=== PATIENT | male | born 1925 | race Caucasian/White ===

== ENCOUNTER 2016-10-15 09:30 | Inpatient (IN) | payer MEDICARE ==
[~2016-10-15] VITALS: Ht 182.9 cm; Wt 66.6 kg
[2016-10-15 11:03] VITALS: BP 117/64; PULSE 90; TEMP 98.5
[2016-10-15] MEDS ORDERED: FLOMAX 0.40.4 MG/CAP PO (11:28)
[2016-10-15] MEDS ORDERED: SYNTHROID0.05 MG/TA PO (11:29)
[2016-10-15] MEDS ORDERED: THERA-M W/MINER1 TAB PO (11:29)
[2016-10-15 11:58] LABS: PH 5 (5-8); SQUAMOUS EPITHELIAL 0-2 /hpf; URINE APPEARANCE Hazy; URINE BACTERIA None Seen /hpf; URINE BILIRUBIN Negative (NEGATIVE); URINE BLOOD 3+ (NEGATIVE); URINE COLOR Yellow; URINE GLUCOSE Negative (NEGATIVE); URINE KETONE 1+ (NEGATIVE); URINE RBC >50 /hpf; URINE UROBILINOGEN Negative (NEGATIVE)
[2016-10-15 11:59] LABS: URINE WBC 20-50 /hpf
[2016-10-15 13:52] LABS: HEMOGLOBIN 9.3 g/dl (13.5-18.0); MEAN CELL VOLUME 96 fl (80.0-100.0); MEAN CORPUSCULAR HEMOGLOBIN 32 pg (27.0-31.0); MEAN CORPUSCULAR HGB CONC 33 g/dl (33.0-37.0); MEAN PLATELET VOLUME 10.5 fl (7.4-10.4); PLATELET COUNT 169 K/mm3 (130-400); RED BLOOD COUNT 2.91 M/mm3 (4.20-5.60); REDCELL DISTRIBUTION WIDTH-CV 13.4 % (11.5-14.5); WHITE BLOOD COUNT 8.9 K/mm3 (4.8-10.8)
[2016-10-15 13:53] LABS: ADD PATHOLOGY DIFF REVIEW NO
[2016-10-15 14:04] VITALS: BP 105/55; PULSE 74; TEMP 99
[2016-10-15 14:17] LABS: ADJUSTED CALCIUM 9.4 mg/dL (8.4-10.2); ALBUMIN 2.6 gm/dL (3.5-5.0); BILIRUBIN,TOTAL 0.9 mg/dL (0.0-1.0); CALCIUM 8.3 mg/dL (8.4-10.2); CREATININE, serum 0.66 mg/dL (0.66-1.25); POTASSIUM 3.9 mmol/L (3.4-5.0); TOTAL PROTEIN 4.7 gm/dL (6.4-8.2)
[2016-10-15 14:23] LABS: INR 1.1 (0.8-3.0); PROTHROMBIN TIME 12.2 SECONDS (9.7-12.8)
[2016-10-15 15:17] LABS: BAND 4 % (0-10); NEUTROPHILS 84 % (42.0-75.2); TOTAL CELLS COUNTED 100
[2016-10-15 15:18] LABS: HYPOCHROMIA 1+; OVALOCYTES 1+; PLATELET ESTIMATE NORMAL (NORMAL)
[2016-10-15 18:25] VITALS: PULSE 77; TEMP 98.5
[2016-10-15 21:26] VITALS: BP 102/54; PULSE 74; TEMP 99.1
[2016-10-16] VITALS (10 sets, daily range): BP systolic 105–168; BP diastolic 45–73; PULSE 79–100; TEMP 98.9–99.4
[2016-10-16 06:51] LABS: MEAN CELL VOLUME 96 fl (80.0-100.0); MEAN CORPUSCULAR HGB CONC 34 g/dl (33.0-37.0); MEAN PLATELET VOLUME 10.8 fl (7.4-10.4); PLATELET COUNT 163 K/mm3 (130-400); RED BLOOD COUNT 2.79 M/mm3 (4.20-5.60); REDCELL DISTRIBUTION WIDTH-CV 13.4 % (11.5-14.5); WHITE BLOOD COUNT 10.8 K/mm3 (4.8-10.8)
[2016-10-16 06:58] LABS: HEMATOCRIT 26.7 % (42.0-52.0); MEAN CORPUSCULAR HEMOGLOBIN 32 pg (27.0-31.0)
[2016-10-16 06:59] LABS: ADD PATHOLOGY DIFF REVIEW NO
[2016-10-16 07:34] LABS: ANION GAP 8 mmol/L (7-16); BLOOD UREA NITROGEN 16 mg/dL (9-20); CALCIUM 8.2 mg/dL (8.4-10.2); CARBON DIOXIDE 27 mmol/L (22-30); CHLORIDE 105 mmol/L (98-107); CREATININE, serum 0.62 mg/dL (0.66-1.25); GLUCOSE 128 mg/dL (74-106); POTASSIUM 4.1 mmol/L (3.4-5.0); SODIUM 140 mmol/L (137-145)
[2016-10-16 07:51] LABS: BAND 2 % (0-10); NEUTROPHILS 84 % (42.0-75.2); TOTAL CELLS COUNTED 100
[2016-10-16 07:53] LABS: ANISOCYTOSIS 1+; PLATELET ESTIMATE NORMAL (NORMAL)
[2016-10-16 08:01] LABS: TOTAL IRON BINDING CAPACITY 249 ug/dL (261-462)
[2016-10-16 08:24] LABS: FERRITIN 154 ng/mL (18-464)
[2016-10-17 01:55] VITALS: BP 104/53; PULSE 85; TEMP 99.5
[2016-10-17 04:35] VITALS: BP 104/49; PULSE 104; TEMP 98.5
[2016-10-17 06:28] LABS: HEMOGLOBIN 8.4 g/dl (13.5-18.0)
[2016-10-17 06:43] LABS: CALCIUM 7.9 mg/dL (8.4-10.2); CREATININE, serum 0.82 mg/dL (0.66-1.25); POTASSIUM 3.5 mmol/L (3.4-5.0)
[2016-10-17 10:00] VITALS: BP 96/57; PULSE 85; TEMP 98.8
[2016-10-17 14:20] VITALS: BP 99/53; PULSE 88; TEMP 98.3
[2016-10-17 17:19] VITALS: BP 113/63; PULSE 98; TEMP 98.9
[2016-10-17 22:04] VITALS: BP 88/45; PULSE 84; TEMP 98
[2016-10-18] VITALS (13 sets, daily range): BP systolic 81–124; BP diastolic 32–80; PULSE 49–105; TEMP 98.1–99.3
[2016-10-18 07:38] LABS: MEAN CELL VOLUME 95 fl (80.0-100.0); MEAN CORPUSCULAR HGB CONC 33 g/dl (33.0-37.0); MEAN PLATELET VOLUME 11.5 fl (7.4-10.4); PLATELET COUNT 125 K/mm3 (130-400); RED BLOOD COUNT 2.15 M/mm3 (4.20-5.60); REDCELL DISTRIBUTION WIDTH-CV 13.2 % (11.5-14.5); WHITE BLOOD COUNT 9.4 K/mm3 (4.8-10.8)
[2016-10-18 08:18] LABS: HEMATOCRIT 20.4 % (42.0-52.0); HEMOGLOBIN 6.8 g/dl (13.5-18.0); MEAN CORPUSCULAR HEMOGLOBIN 32 pg (27.0-31.0)
[2016-10-19] VITALS (7 sets, daily range): BP systolic 101–132; BP diastolic 58–69; PULSE 76–92; TEMP 98.2–100.1
[2016-10-19 06:52] LABS: HEMATOCRIT 23.6 % (42.0-52.0); HEMOGLOBIN 7.9 g/dl (13.5-18.0)
[2016-10-20 02:00] VITALS: BP 103/54; PULSE 67; TEMP 98.7
[2016-10-20 05:18] VITALS: BP 134/69; PULSE 85; TEMP 99.9
[2016-10-20 06:16] LABS: PH 5 (5-8); SQUAMOUS EPITHELIAL None Seen /hpf; URINE APPEARANCE Cloudy; URINE BACTERIA None Seen /hpf; URINE BILIRUBIN Negative (NEGATIVE); URINE BLOOD 3+ (NEGATIVE); URINE COLOR Yellow; URINE GLUCOSE Negative (NEGATIVE); URINE KETONE Negative (NEGATIVE); URINE RBC >50 /hpf; URINE UROBILINOGEN Negative (NEGATIVE); URINE WBC 20-50 /hpf
[2016-10-20 08:12] LABS: MEAN CELL VOLUME 92 fl (80.0-100.0); MEAN CORPUSCULAR HGB CONC 33 g/dl (33.0-37.0); MEAN PLATELET VOLUME 10.9 fl (7.4-10.4); PLATELET COUNT 186 K/mm3 (130-400); REDCELL DISTRIBUTION WIDTH-CV 15.8 % (11.5-14.5); WHITE BLOOD COUNT 7.6 K/mm3 (4.8-10.8)
[2016-10-20 08:29] LABS: HEMATOCRIT 28.5 % (42.0-52.0); HEMOGLOBIN 9.4 g/dl (13.5-18.0); MEAN CORPUSCULAR HEMOGLOBIN 30 pg (27.0-31.0)
[2016-10-20 08:30] LABS: ADD PATHOLOGY DIFF REVIEW NO
[2016-10-20 08:47] LABS: CALCIUM 7.8 mg/dL (8.4-10.2); CREATININE, serum 0.69 mg/dL (0.66-1.25); POTASSIUM 3.2 mmol/L (3.4-5.0)
[2016-10-20 09:12] LABS: THYROID STIMULATING HORMONE 6.2 uIU/mL (0.465-4.680)
[2016-10-20 09:37] VITALS: BP 93/50; PULSE 96; TEMP 98.8
[2016-10-20] MEDS ORDERED: XARELTO10 MG PO (09:48)
[2016-10-20] MEDS ORDERED: TYLENOL 325MG325 MG PO (09:49)
[2016-10-20] MEDS ORDERED: NORCO 325 MG-51 TAB PO (09:49)
[2016-10-20] MEDS ORDERED: DULCOLAX S10 MG/SUPP RC (09:49)
[2016-10-20] MEDS ORDERED: SENOKOT S 50 MG1 TAB PO (09:50)
[2016-10-20 10:08] LABS: ANISOCYTOSIS 1+; BAND 1 % (0-10); HYPOCHROMIA 2+; NEUTROPHILS 76 % (42.0-75.2); PLATELET ESTIMATE NORMAL (NORMAL); TOTAL CELLS COUNTED 100
[2016-10-20 10:09] LABS: OVALOCYTES 1+
[2016-10-20 12:47] VITALS: BP 93/50; PULSE 96; TEMP 98.8
[2016-10-20 13:30] VITALS: BP 117/85; PULSE 89
== END 2016-10-20 17:35 | disposition swing bed (61) | DRG 481 ==
LOC: SURG 09:30
PROVIDERS: Internal Medicine Cardiovascular Disease; Nurse Practitioner Family; Orthopaedic Surgery
PROC: 0QS606Z Reposition Right Upper Femur with Intramedullary Internal Fixation Device, Open Approach (ICD-10-PCS; principal; 2016-10-16 10:00)
DX: S72.141A Displaced intertrochanteric fracture of right femur, initial encounter for closed fracture (principal); F05 Delirium due to known physiological condition; N39.0 Urinary tract infection, site not specified; Z66 Do not resuscitate; D62 Acute posthemorrhagic anemia; L76.32 Postprocedural hematoma of skin and subcutaneous tissue following other procedure; E44.0 Moderate protein-calorie malnutrition; Z68.1 Body mass index [BMI] 19.9 or less, adult; W18.30XA Fall on same level, unspecified, initial encounter; F03.90 Unspecified dementia, unspecified severity, without behavioral disturbance, psychotic disturbance, mood disturbance, and anxiety; Z87.891 Personal history of nicotine dependence; D64.9 Anemia, unspecified
CPT/HCPCS: 99232-AI; 99233-AI; 99239; C1713; J0690; J0696; J2250; J2270; J2704; J3010; J3370; J7040; J7050; P9016